=== PATIENT | female | born 1985 | race Two or more races ===

== ENCOUNTER 2020-08-15 02:41 | Outpatient (CLI) | payer OTHER ==
[2020-08-15] MEDS ORDERED: ECOTRIN81 MG PO (02:56)
[2020-08-15] MEDS ORDERED: PRENATAL TABLE1 EAC1 PO (02:57)
[2020-08-15] MEDS ORDERED: BUPROPION HCL200 M1 PO (02:58)
== END 2020-08-15 12:00 | disposition home or self-care (01) ==
LOC: OBS/DEL 02:41
PROVIDERS: ATTEND Obstetrics & Gynecology
DX: O16.3 Unspecified maternal hypertension, third trimester (principal); Z3A.32 32 weeks gestation of pregnancy; Z20.822 Contact with and (suspected) exposure to COVID-19

== ENCOUNTER 2020-09-06 22:17 | Inpatient (IN) | payer OTHER ==
[~2020-09-06] VITALS: Ht 162.6 cm; Wt 82.6 kg
[~2020-09-06 22:17] MED LIST: BUPROPION HCL200 M1 PO; ECOTRIN81 MG PO; PRENATAL TABLE1 EAC1 PO
[2020-09-06] MEDS ORDERED: PRILOSEC OTC20 MG PO (23:30)
== END 2020-09-09 14:12 | disposition home or self-care (01) | DRG 807 ==
LOC: LDR 22:17 → OB/GYN 09-08 09:33
PROVIDERS: ADMIT Obstetrics & Gynecology Maternal & Fetal Medicine; ATTEND Obstetrics & Gynecology Maternal & Fetal Medicine
PROC: 10E0XZZ Delivery of Products of Conception, External Approach (ICD-10-PCS; principal; 2020-09-06)
PROC: 4A1HXFZ Monitoring of Products of Conception, Cardiac Rhythm, External Approach (ICD-10-PCS; 2020-09-06)
DX: O13.4 Gestational [pregnancy-induced] hypertension without significant proteinuria, complicating childbirth (principal); Z37.0 Single live birth; Z3A.35 35 weeks gestation of pregnancy; Z20.822 Contact with and (suspected) exposure to COVID-19

== ENCOUNTER 2020-12-22 07:40 | Day surgery (SDC) | payer OTHER ==
[~2020-12-22 07:40] MED LIST changes: +PRILOSEC OTC20 MG PO; +ZYRTEC10 M3 PO
== END 2020-12-22 18:05 | disposition home or self-care (01) ==
LOC: CIR.AMB 07:40
PROVIDERS: ATTEND Obstetrics & Gynecology
DX: Z30.2 Encounter for sterilization (principal); Z20.822 Contact with and (suspected) exposure to COVID-19